=== PATIENT | female | born 1970 | race Caucasian/White ===

== ENCOUNTER 2016-10-20 12:57 | Emergency (ER) | payer SELFPAY ==
[~2016-10-20 12:57] MED LIST: ADVAIR; ALBUTEROL; ALBUTEROL17 GM INH; BAYER ASPIRIN325 M1 PO; CATAFLAM50 MG PO; DAY TIME CO5 MG/5 ML PO; DELSYM30 MG/5 ML PO; FLEXERIL10 MG PO; LEXAPRO10 M2 PO; NORCO 5-325 TA1 EACH PO; NORCO 5/325 TAB1 TAB PO; PERCOCET 5/3251 TAB PO; PHENERGAN12.5 MG/TA PO; POTASSIUM CHLO10 ME2 PO; PRENATAL COMPL1 EACH PO; PRENATAL VITAMI1 TAB; PRILOSEC20 MG PO; PROVENTIL17 GM; SKELAXIN800 MG PO; SOMA350 MG PO; TYLENOL W/CODEI1 TAB PO; ULTRAM ER300 MG; VENTOLIN HFA18 G2 PO; VIBRAMYCIN100 M1 PO; VIBRAMYCIN100 MG PO; VICODIN 5/500 T1 TAB PO; VITAMIN SUPPLEMENTS; VOLTAREN75 MG PO; ZITHROMAX250MG Z-PAK PO
[2016-10-20] MEDS ORDERED: POTASSIUM CHLORIDE (13:06)
[2016-10-20] MEDS ORDERED: TESSALON PERLE100 M1 PO (13:07)
[2016-10-20 13:33] LABS: BASO % 0.7 % (0-2); EOS % 0.7 % (0-7); HCT-HEMATOCRIT 42.4 % (34.0-49.0); HGB-HEMOGLOBIN 14.9 gm/dl (12.0-15.5); LYMPH % 28.3 % (20-45); LYMPH ABSOLUTE COUNT 0.9 tho/cmm (0.8-4.5); MCH (MEAN CORPUSCULAR HGB) 37.8 pg (28.0-32.0); MCHC MEAN CORPUSCULAR HGB CONC 35.1 % (32.0-36.0); MCV (MEAN CELL VOLUME) 107.6 fl (82.0-96.0); MEAN PLATELET VOLUME 10.7 cmc (9.4-12.4); MONO % 21.7 % (0-12); MONOCYTE ABSOLUTE COUNT 0.7 tho/cmm (0.0-1.2); NEUTROPHIL ABSOLUTE COUNT 1.5 tho/cmm (1.6-8.0); NEUTROPHIL-AUTOMATED 1.5 tho/cmm (1.6-8.0); NEUTROPHILS % 48.6 % (40-80); PLATELET COUNT 121 tho/cmm (150-450); RED BLOOD COUNT 3.94 mil/cmm (4.00-5.20); RED CELL DISTRIBUTION WIDTH 14.2 % (12.4-16.4)
[2016-10-20 13:51] LABS: ALB/GLOB RATIO 0.8 (0.8-2.0); ALKALINE PHOSPHATASE 97 U/L (33-138); ALT/SGPT 102 U/L (12-78); ANION GAP 15 mmol/L (0-20); AST/SGOT 90 U/L (10-40); BILIRUBIN,TOTAL 0.3 mg/dl (0-1.5); BLOOD UREA NITROGEN 7 mg/dl (6-24); CARBON DIOXIDE-VENOUS 22 mmol/L (22-32); CHLORIDE 103 mmol/l (96-110); CREATININE 0.48 mg/dl (0.50-1.10); GLUCOSE 84 mg/dL (70-110); POTASSIUM 4.1 mmol/L (3.7-5.1); SODIUM 136 mmol/L (135-145); eGFR VALUE FOR BLACK >90 mL/Min
[2016-10-20 13:53] LABS: ALBUMIN 3.6 g/dl (3.5-5.0)
[2016-10-20 14:16] LABS: PREGNANCY-SERUM NEGATIVE (NEGATIVE)
[2016-10-20] MEDS ORDERED: PROMETHAZINE-C118 ML PO (14:21)
[2016-10-20] MEDS ORDERED: PREDNISONE10 M1 PO (14:21)
[2016-10-20] MEDS ORDERED: ZITHROMAX250 M1 PO (14:21)
[2017-02-03] MEDS ORDERED: NO HOME MEDICATION XX (18:11)
[2017-02-03] MEDS ORDERED: AMOXICILLIN875 M1 PO (19:39)
== END 2016-10-20 14:28 ==
LOC: EDMED 12:57
PROVIDERS: Emergency Medicine
DX: J45.909 Unspecified asthma, uncomplicated (principal); R09.1 Pleurisy; F17.210 Nicotine dependence, cigarettes, uncomplicated; Z98.890 Other specified postprocedural states